=== PATIENT | female | born 1970 | race Caucasian/White ===

== ENCOUNTER 2016-11-19 | Outpatient (CLI) | payer OTHER | END 2016-11-19 13:55 | disposition critical access hospital (66) | DX: R40.20 Unspecified coma (principal) | CPT/HCPCS: A0425; A0427 ==

== ENCOUNTER 2016-11-19 14:07 | Inpatient (IN) | payer OTHER ==
[2016-11-19] MEDS ORDERED: ACETYLCYSTEINE IV STA (15:25)
[2016-11-19] MEDS ORDERED: DEXTROSE 5% IV STA (15:25)
[2016-11-19] MEDS ORDERED: ACETYLCYSTEINE IV ONE ×3 (15:31→21:00)
[2016-11-19] MEDS ORDERED: DEXTROSE 5% IV ONE ×3 (15:31→21:00)
[2016-11-19] MEDS ORDERED: LORazepam 2 MG/ML SYRINGE IVP PRN (16:00)
[2016-11-19] MEDS ORDERED: ZOLPIDEM 5 MG TABLET PO PRN (16:00)
[2016-11-19] MEDS ORDERED: IBUPROFEN 400 MG TABLET PO PRN (16:00)
[2016-11-19] MEDS ORDERED: ONDANSETRON 4 MG/2 ML VIAL IVP PRN (16:00)
[2016-11-19] MEDS ORDERED: PROCHLORPERAZINE 10 MG/2 ML VIAL IVP PRN (16:00)
[2016-11-19] MEDS ORDERED: SODIUM CHLORIDE FLUSH 0.9% 10 ML SYRINGE IVP PRN (16:00)
[2016-11-19] MEDS ORDERED: MAGNESIUM SULFATE 2 GRAM 50 ML IV SCH (16:00)
[2016-11-19] MEDS ORDERED: POTASSIUM CHLORIDE 20 MEQ TABLET PO SCH (18:08)
[2016-11-19] MEDS ORDERED: SODIUM CHLORIDE 0.9% 250 ML IV ONE (19:33)
[2016-11-19] MEDS ORDERED: MAGNESIUM SULFATE 2 GRAM 50 ML IV ONE (19:34)
[2016-11-19] MEDS: SODIUM CHLORIDE FLUSH 0.9% 10 ML SYRINGE IVP SCH (21:00)
[2016-11-19] MEDS ORDERED: DIVALPROEX SODIUM 1000 MG PO SCH (21:00)
[2016-11-19] MEDS ORDERED: risperiDONE 1 MG TABLET PO SCH (21:00)
[2016-11-19] MEDS ORDERED: DIVALPROEX ER 250 MG TABLET PO SCH (21:00)
[2016-11-20] MEDS: NEUTRA-PHOS 250 MG TABLET PO SCH ×2 (06:07→09:01)
[2016-11-20] MEDS: SODIUM CHLORIDE FLUSH 0.9% 10 ML SYRINGE IVP SCH ×2 (06:09→15:32)
[2016-11-20] MEDS ORDERED: PANTOPRAZOLE 40 MG TABLET PO SCH (07:00)
[2016-11-20] MEDS ORDERED: ENOXAPARIN 40 MG/0.4 ML SYRINGE SUBQ SCH (09:00)
[2016-11-20] MEDS ORDERED: MULTIVITAMIN 10 ML, THIAMINE INJ 100 MG, FOLIC ACID INJ 1 MG in SODIUM CHLORIDE 0.9% 1,... IV SCH (09:00)
== END 2016-11-20 18:45 | disposition home or self-care (01) | DRG 918 ==
DX: T39.1X1A Poisoning by 4-Aminophenol derivatives, accidental (unintentional), initial encounter (principal); R41.82 Altered mental status, unspecified; Y92.481 Parking lot as the place of occurrence of the external cause; F10.120 Alcohol abuse with intoxication, uncomplicated; F19.10 Other psychoactive substance abuse, uncomplicated; F31.9 Bipolar disorder, unspecified; T43.596A Underdosing of other antipsychotics and neuroleptics, initial encounter; Z91.128 Patient's intentional underdosing of medication regimen for other reason; E87.6 Hypokalemia; Y90.8 Blood alcohol level of 240 mg/100 ml or more; F17.210 Nicotine dependence, cigarettes, uncomplicated; Z91.5 Personal history of self-harm

== ENCOUNTER 2017-02-25 17:57 | Emergency (ER) | payer OTHER | END 2017-02-26 06:30 | disposition home or self-care (01) | DX: F32.9 Major depressive disorder, single episode, unspecified (principal); R45.851 Suicidal ideations; F10.129 Alcohol abuse with intoxication, unspecified; F31.9 Bipolar disorder, unspecified; F17.200 Nicotine dependence, unspecified, uncomplicated ==

== ENCOUNTER 2017-03-03 20:05 | Outpatient (CLI) | payer OTHER | END 2017-03-03 20:06 | disposition critical access hospital (66) | LOC: EMS 20:05 | PROVIDERS: ATTEND Surgery | DX: R45.851 Suicidal ideations (principal) | CPT/HCPCS: A0425; A0429 ==

== ENCOUNTER 2017-03-03 20:21 | Emergency (ER) | payer OTHER ==
[2017-03-03] MEDS ORDERED: SODIUM CHLORIDE 0.9% 1,000 ML IV ONE (20:35)
[2017-03-03 21:00] LABS: BASOPHILS % (AUTO) 0.2 %; EOSINOPHILS # (AUTO) 0.1 10^3/uL (0.0-0.7); EOSINOPHILS % (AUTO) 0.6 %; HCT - HEMATOCRIT 43.7 % (37.0-47.0); HGB - HEMOGLOBIN 14.4 g/dL (12.0-16.0); LYMPHOCYTES # (AUTO) 4.3 10^3/uL (1.5-3.5); LYMPHOCYTES % (AUTO) 25.8 %; MEAN CORPUSCULAR HEMOGLOBIN 30.1 pg (27.0-31.0); MEAN CORPUSCULAR HGB CONC 32.9 g/dL (32.0-36.0); MEAN CORPUSCULAR VOLUME 91.2 fL (81.0-99.0); MEAN PLATELET VOLUME 9.3 fL (7.9-10.8); MONOCYTES # (AUTO) 0.6 10^3/uL (0.0-1.0); MONOCYTES % (AUTO) 3.9 %; NEUTROPHILS # (AUTO) 11.5 10^3/uL (1.5-6.6); NEUTROPHILS % (AUTO) 69.5 %; NUCLEATED RED BLOOD CELLS AUTO 0.1 /100WBC; RED BLOOD COUNT 4.79 10^6/uL (4.20-5.40); RED CELL DISTRIBUTION WIDTH 14.8 % (12.0-15.0); UNCORRECTED WHITE BLOOD COUNT 16.6 x10^3/uL; WHITE BLOOD COUNT 16.6 x10^3/uL (4.8-10.8)
[2017-03-03 21:16] LABS: ALBUMIN/GLOBULIN RATIO 1.5 (1.0-2.2); BILIRUBIN,TOTAL 0.3 mg/dL (0.2-1.0); BUN - BLOOD UREA NITROGEN 11 mg/dL (6-20); CALCIUM 8.8 mg/dL (8.5-10.3); CARBON DIOXIDE - CO2 27 mmol/L (21-32); CHLORIDE 103 mmol/L (101-111); CREATININE 0.6 mg/dL (0.4-1.0); GFR - MDRD 109 (>89); GLUCOSE 73 mg/dL (70-100); LIPASE 66 U/L (22-51); POTASSIUM 3.1 mmol/L (3.5-5.0); SALICYLATE < 6.0 mg/dL; SODIUM 140 mmol/L (135-145)
[2017-03-03 21:22] LABS: ACETAMINOPHEN < 10 ug/mL (10-30)
[2017-03-03 21:40] LABS: BILIRUBIN,URINE NEGATIVE (NEGATIVE)
[2017-03-03 21:43] LABS: HCG UR QUAL NEGATIVE; UA CHARGE (STRIP ONLY) YES; UR CULTURE IF IND NOT INDICATED
[2017-03-04] MEDS ORDERED: SODIUM CHLORIDE 0.9% 1,000 ML IV ONE (00:07)
--- NOTE | 2017-03-04 02:46 | ED Physician Documentation ---
PD HPI MHE - Stated complaint Stated Complaint: MHE,SI - Chief complaint Chief Complaint: MHE - History obtained from History obtained from: Patient, EMS - History of Present Illness Primary symptom: Suicidal ideation, Self harm - OD, Depression Timing - onset: How many hours ago (3) Contributing factors: Family, Substance abuse - ETOH Similar symptoms before: Work up / diagnostics, Treatment, Follow up Recently seen: Not recently seen - Additional information Additional information: Patient is a 46 year old female with a history of depression and multiple visits for overdose who is presenting to the emergency department for alcohol overdose and suicidal ideation. [place] patient admitted to drinking a fifth of vodka and stated that she was going to go out in the water and drown herself. Review of Systems Unable to obtain: Intoxicated PD PAST MEDICAL HISTORY - Past Medical History Past Medical History: Yes Cardiovascular: None Respiratory: Pneumonia Endocrine/Autoimmune: None GI: None : None HEENT: Other Psych: Depression, Bipolar disorder, Other Musculoskeletal: Other Derm: None Other Past Medical History: Suicidal Ideations & Attempts. Has been hospitalized x2 in [place], last one last 2015. Not following up w/ Mental Health for a long time. 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 - Present Medications Home Medications: Ambulatory Orders Medication Instructions Recorded Confirmed Divalproex Sodium [Divalproex 500 mg PO QPM 11/19/16 03/03/17 Sodium ER] Risperidone 1 mg PO QPM 11/19/16 03/03/17 Gabapentin 300 mg PO DAILY 02/25/17 03/03/17 Naltrexone HCl [Revia] 50 mg PO QPM 02/25/17 03/03/17 - Allergies Allergies/Adverse Reactions: Allergies Allergy/AdvReac Type Severity Reaction Status Date / Time No Known Drug Allergies Allergy Verified 03/03/17 20:48 - Social History Does the pt smoke?: Yes Smoking Status: Current every day smoker Does the pt drink ETOH?: Yes Does the pt have substance abuse?: No - Immunizations Immunizations are current?: No Immunizations: TDAP >10years/unknown PD ED PE NORMAL - Vitals Vital signs reviewed: Yes - HEENT HEENT: Atraumatic, PERRL - Cardiac Cardiac: RRR, No murmur - Respiratory Respiratory: No respiratory distress - Abdomen Abdomen: Soft, Non distended PD ED PE EXPANDED - General General: Lethargic, Unresponsive (minimally responsive) - HEENT HEENT: Atraumatic, PERRL, Pupils unequal. No: Head injury - Respiratory Respiratory: Clear to ausultation cristina. No: Distress, Labored - Abdomen Abdomen: No: Tender to palpation, Rebound, Guarding - Neuro Neuro: Lethargic, Other - GCS Eye Opening: None Motor: Withdraws to Pain Verbal: Incomprehensible Total: 7 - Psych Psych: Intoxicated / AOB Results - Vitals Vitals: Vital Signs - 24 hr 03/03/17 03/03/17 03/03/17 20:23 20:35 21:24 Temperature 37.2 C Heart Rate 86 84 88 Respiratory 15 19 19 Rate Blood Pressure 88/53 L 104/60 107/66 O2 Saturation 99 100 99 03/03/17 03/03/17 03/03/17 22:11 23:00 23:45 Temperature Heart Rate 87 87 95 Respiratory 18 22 Rate Blood Pressure 102/57 L 92/52 L 82/46 L O2 Saturation 98 95 03/03/17 03/04/17 03/04/17 23:53 00:09 00:44 Temperature Heart Rate 88 84 82 Respiratory 18 14 14 Rate Blood Pressure 93/50 L 89/51 L 92/55 L O2 Saturation 94 99 94 03/04/17 02:35 Temperature Heart Rate 90 Respiratory 22 Rate Blood Pressure 93/60 O2 Saturation 94 Oxygen O2 Source Room air - Labs Labs: Laboratory Tests 03/03/17 03/03/17 03/03/17 20:35 20:35 20:35 WBC 16.6 H RBC 4.79 Hgb 14.4 Hct 43.7 MCV 91.2 MCH 30.1 MCHC 32.9 RDW 14.8 Plt Count 228 MPV 9.3 Neut # 11.5 H Lymph # 4.3 H [place] # 0.6 Eos # 0.1 Baso # 0.0 Absolute Nucleated RBC 0.01 Nucleated RBCs 0.1 Sodium 140 Potassium 3.1 L Chloride 103 Carbon Dioxide 27 Anion Gap 10.0 BUN 11 Creatinine 0.6 Estimated GFR (MDRD) 109 Glucose 73 Calcium 8.8 Total Bilirubin 0.3 AST 24 ALT 21 Alkaline Phosphatase 68 Total Protein 7.0 Albumin 4.2 Globulin 2.8 Albumin/Globulin Ratio 1.5 Lipase 66 H TSH 0.91 Urine Color Urine Clarity Urine pH Ur Specific [place] Urine Protein Urine Glucose (UA) Urine Ketones Urine Occult Blood Urine Nitrite Urine Bilirubin Urine Urobilinogen Ur Leukocyte Esterase Ur Microscopic Review Urine Culture Comments Urine HCG, Qual Salicylates < 6.0 Urine Opiates Screen Ur Oxycodone Screen Urine Methadone Screen Ur Propoxyphene Screen Acetaminophen < 10 L Ur Barbiturates Screen Ur Tricyclics Screen Ur Phencyclidine Scrn Ur Amphetamine Screen U Methamphetamines Scrn U Benzodiazepines Scrn Urine Cocaine Screen U Cannabinoids Screen Ethyl Alcohol 395.6 03/03/17 03/03/17 21:30 21:30 WBC RBC Hgb Hct MCV MCH MCHC RDW Plt Count MPV Neut # Lymph # [place] # Eos # Baso # Absolute Nucleated RBC Nucleated RBCs Sodium Potassium Chloride Carbon Dioxide Anion Gap BUN Creatinine Estimated GFR (MDRD) Glucose Calcium Total Bilirubin AST ALT Alkaline Phosphatase Total Protein Albumin Globulin Albumin/Globulin Ratio Lipase TSH Urine Color STRAW Urine Clarity CLEAR Urine pH 6.0 Ur Specific [place] <=1.005 Urine Protein NEGATIVE Urine Glucose (UA) NEGATIVE Urine Ketones NEGATIVE Urine Occult Blood NEGATIVE Urine Nitrite NEGATIVE Urine Bilirubin NEGATIVE Urine Urobilinogen 0.2 (NORMAL) Ur Leukocyte Esterase NEGATIVE Ur Microscopic Review NOT INDICATED Urine Culture Comments NOT INDICATED Urine HCG, Qual NEGATIVE Salicylates Urine Opiates Screen NEGATIVE Ur Oxycodone Screen NEGATIVE Urine Methadone Screen NEGATIVE Ur Propoxyphene Screen NEGATIVE Acetaminophen Ur Barbiturates Screen NEGATIVE Ur Tricyclics Screen NEGATIVE Ur Phencyclidine Scrn NEGATIVE Ur Amphetamine Screen NEGATIVE U Methamphetamines Scrn NEGATIVE U Benzodiazepines Scrn NEGATIVE Urine Cocaine Screen NEGATIVE U Cannabinoids Screen NEGATIVE Ethyl Alcohol PD MEDICAL DECISION MAKING - ED course Complexity details: reviewed old records, reviewed results, re-evaluated patient , considered differential, d/w patient ED course: Patient was seen and examined at bedside. IV access was gained and labs were drawn. Patient was altered but maintaining her own airway. labs and urine were collected and patient was treated with a liter bolus. Patient was found to have a blood alcohol of almost 400. patient was observed overnight. throughout the night patient was re-evaluated multiple times. patient became more and more coherent. Patient was signed over to Dr. Bee pending repeat lynette and dmhp evaluation.
--- NOTE | 2017-03-04 12:29 | ED Physician Documentation ---
ED Addendum - Addendum Addendum: 03/04/17 12:27 Patient calm and resting in ED. Had breakfast and no nausea. BA was below legal level. SW evaluating her and will help guide subsequent plan. Patient does not remember most of last night, and awoke this morning with question to the nurse of "how did I get here?"
[2017-03-04 15:08] VITALS: BP 126/81
== END 2017-03-04 15:08 | disposition home or self-care (01) ==
LOC: EDBD → EDUNIT# → ED 20:21
DX: F32.9 Major depressive disorder, single episode, unspecified (principal); R45.851 Suicidal ideations; F17.200 Nicotine dependence, unspecified, uncomplicated
CPT/HCPCS: 36415; 51701; 80053; 80306; 80307; 80320; 80329; 81001; 81003; 81025; 83690; 84443; 85025; 87086; 96360; 96361; 99284; 99285

== ENCOUNTER 2017-03-10 18:26 | Outpatient (CLI) | payer OTHER | END 2017-03-10 18:27 | disposition E | LOC: EMS 18:26 | PROVIDERS: ATTEND Surgery | CPT/HCPCS: A0425; A0429 ==